=== PATIENT | female | born 1960 | race Caucasian/White ===

== ENCOUNTER 2019-08-25 09:00 | Outpatient (RCR) | payer OTHER | END 2019-08-30 | LOC: PT 09:00 | PROVIDERS: ATTEND Specialist | DX: M75.02 Adhesive capsulitis of left shoulder (principal); M77.8 Other enthesopathies, not elsewhere classified | CPT/HCPCS: 97139 ==

== ENCOUNTER 2020-07-30 12:00 | Outpatient (RCR) | payer OTHER | END 2020-08-01 | LOC: OT 12:00 | PROVIDERS: ATTEND Specialist | DX: S46.092D Other injury of muscle(s) and tendon(s) of the rotator cuff of left shoulder, subsequent encounter (principal) ==

== ENCOUNTER 2020-08-26 12:00 | Outpatient (RCR) | payer OTHER | END 2020-08-29 | LOC: OT 12:00 | PROVIDERS: ATTEND Specialist | DX: S46.092D Other injury of muscle(s) and tendon(s) of the rotator cuff of left shoulder, subsequent encounter (principal) ==

== ENCOUNTER 2020-09-15 08:00 | Outpatient (RCR) | payer OTHER | END 2020-09-29 | LOC: OT 08:00 | PROVIDERS: ATTEND Specialist | DX: S46.092D Other injury of muscle(s) and tendon(s) of the rotator cuff of left shoulder, subsequent encounter (principal) ==

== ENCOUNTER 2020-10-12 08:06 | Outpatient (RCR) | payer OTHER | END 2020-10-29 | LOC: OT 08:06 | PROVIDERS: ATTEND Specialist | DX: M24.612 Ankylosis, left shoulder (principal); S46.092D Other injury of muscle(s) and tendon(s) of the rotator cuff of left shoulder, subsequent encounter ==